=== PATIENT | female | born 1985 | race Caucasian/White ===

== ENCOUNTER 2021-05-05 09:38 | Outpatient (CLI) | payer OTHER ==
--- NOTE | 2021-05-01 12:50 | NUR ---
lmom with instructions and call back number
[~2021-05-05] VITALS: Ht 172.7 cm; Wt 92.7 kg
[~2021-05-05 09:38] MED LIST: CALCARB 600 W/V1 TA1 PO; CEPHALEXIN500 M1; NORCO 325 MG-101 TAB PO; OMEPRAZOLE40 MG PO; PERCOCET 325 MG1 TA2 PO; PRENATAL 1 PLUS1 TAB PO; PYRIDIUM 100MG100 MG PO; ULTRAM 50MG TAB50 MG PO
[2021-05-05] MEDS ORDERED: ZOLOFT 100MG100 MG PO (09:57)
[2021-05-05] MEDS ORDERED: DEPAKOTE500 MG PO (09:58)
[2021-05-05] MEDS ORDERED: FIORICET 325 MG1 TA1 PO (09:58)
[2021-05-05] MEDS ORDERED: OMEGA-3 1000 MG1 CAP PO (09:59)
[2021-05-05] MEDS ORDERED: MILK THISTLE150 MG PO (10:00)
[2021-05-05] MEDS ORDERED: PRENATAL TABLET PO (10:00)
[2021-05-05] MEDS ORDERED: FENUGREEK PO (10:02)
[2021-05-05 10:08] VITALS: BP 108/66; PULSE 74
[2021-05-05 10:47] VITALS: BP 103/71; PULSE 70
[2021-05-05 11:00] VITALS: BP 103/74; PULSE 71
[2021-05-05 11:15] VITALS: BP 99/70; PULSE 74
[2021-05-05 11:28] LABS: GLUCOSE,CSF 52 mg/dL (40-70); TOTAL PROTEIN,CSF 35 mg/dL (15-45)
[2021-05-05 11:30] VITALS: BP 99/70; PULSE 70
[2021-05-05 12:28] LABS: CSF APPEARANCE CLEAR; CSF COLOR COLORLESS; CSF RBC 1 /mm3 (0-0)
[2021-05-05 13:57] LABS: CSF MONONUCLEAR 100 % (70-100); CSF POLYMORPHONUCLEAR 0 % (0-6)
[2021-05-08 13:47] LABS: ALBUMUN SERUM 4000 mg/dL (()); IGG,SERUM 1300 mg/dL (()); IGG/ALBUMIN SERUM 0.33 (<=0.40)
[2021-05-08 13:50] LABS: ALBUMIN CSF 14.7 mg/dL (<=27.0)
[2021-05-08 15:28] LABS: CSF IGG/ALBUMIN 0.14 (<=0.21); CSF,IGG 2.1 mg/dL (<=8.1); CSF-IGG INDEX 0.42 (<=0.85)
[2021-05-08 15:48] LABS: CSF OLIG BD INTERPRETATION 0 bands (<2); SE OLIGOCLONAL BANDING 0 bands (())
== END 2021-05-05 11:35 | disposition home or self-care (01) ==
LOC: COL.RAD 09:38
PROVIDERS: Psychiatry & Neurology Neurology
DX: R51.9 Headache, unspecified (principal)